=== PATIENT | male | born 1985 | race Caucasian/White ===

== ENCOUNTER 2019-06-23 06:49 | Inpatient (IN) | payer MEDICAID, OTHER ==
[~2019-06-23] VITALS: Ht 170.2 cm; Wt 59.0 kg
[2019-06-23 06:53] VITALS: BP 141/91
--- NOTE | 2019-06-23 07:10 | NUR ---
BIBA WITH C/O SUDDEN ONSET GENERALIZED ABD PAIN 10/10 STARTING THIS MORNING. DENIES N/V/D/FEVER. PT REPORTS CONSTIPATION X2 DAYS. BOWEL SOUNDS PRESENT X4, ABD SOFT/FLAT NON TENDER TO PALPATION. DENIES DIET CHANGES OR RECENT ILLNESS. BED IN LOW POSITION, PT MOM AT BEDSIDE. SIDE RAIL UP X1.
--- NOTE | 2019-06-23 07:25 | NUR ---
DR. WALSH AT BEDSIDE EVALUATING PT
[2019-06-23] MEDS ORDERED: ACETAMINOPHEN 325 MG TAB PO ONE (07:30)
[2019-06-23] MEDS ORDERED: FAMOTIDINE 20 MG TAB PO ONE (07:30)
[2019-06-23 07:52] LABS: BASOPHILS # (AUTO) 0.1 K/uL (0.00-0.22); BASOPHILS % (AUTO) 1.4 % (0.0-2.0); EOSINOPHILS # (AUTO) 0.1 K/uL (0-0.4); EOSINOPHILS % (AUTO) 1.4 % (0.0-4.0); HEMATOCRIT 41.5 % (36-52); HEMOGLOBIN 13.8 g/dL (12.0-18.0); LYMPHOCYTES # (AUTO) 2.2 K/uL (2.0-11.5); LYMPHOCYTES % (AUTO) 29.9 % (20.5-51.1); MEAN CORPUSCULAR HEMOGLOBIN 32 pg (27-31); MEAN CORPUSCULAR HGB CONC 33 g/dL (33-37); MEAN CORPUSCULAR VOLUME 97.2 fL (80-94); MONOCYTES # (AUTO) 0.3 K/uL (0.8-1.0); MONOCYTES % (AUTO) 4.2 % (1.7-9.3); NEUTROPHILS # (AUTO) 4.7 K/uL (1.8-7.7); NEUTROPHILS % (AUTO) 63.1 % (42.2-75.2); PLATELET COUNT (AUTO) 204 K/uL (140-450); RED BLOOD CELL COUNT(AUTO) 4.27 MIL/uL (4.20-6.10); RED CELL DISTRIBUTION WIDTH 15.5 % (11.6-13.7); WHITE BLOOD COUNT (AUTO) 7.4 K/uL (4.8-10.8)
[2019-06-23 08:01] LABS: ALBUMIN 4.6 g/dL (3.4-5.0); ANION GAP 10.7 (8-16); CARBON DIOXIDE 31.5 mmol/L (21-32); CREATININE 1.3 mg/dL (0.6-1.3); POTASSIUM 4.2 mmol/L (3.5-5.1)
--- NOTE | 2019-06-23 08:14 | NUR ---
PT RESTING IN BED, NO NEW NEEDS AT THIS TIME. REPORTS PAIN 4/10 AT THIS TIME.
[2019-06-23] MEDS ORDERED: KETOROLAC 60 MG/2 ML VIAL IM ONE (08:20)
--- NOTE | 2019-06-23 09:00 | NUR ---
PT STATES HE FEELS BATTER AFTER TORADOL, 0/10 AT THIS TIME
[2019-06-23] MEDS ORDERED: BICT1TAB PO (10:09)
[2019-06-23] MEDS: NACL 0.9% 1,000 ML IV SCH ×2 (11:13→21:13)
[2019-06-23] MEDS ORDERED: MORPHINE SULFATE 2 MG/ML SYR IVP PRN (11:15)
[2019-06-23] MEDS ORDERED: ONDANSETRON 4 MG/2 ML VIAL IVP PRN (11:15)
[2019-06-23 11:50] VITALS: BP 107/59
--- NOTE | 2019-06-23 11:50 | NUR ---
PT CAME TO UNIT ON A WHEELCHAIR. PT IS ALERT AWAKE AND RESPONSIVE. NO DISTRESS NOTED. CALL LIGHT IN REACH.
--- NOTE | 2019-06-23 11:55 | NUR ---
ADMISSION ASSESSMENT DONE ON PATIENT. NO COMPLAINS OF PAIN. SKIN INTACT. PT ALERT AWAKE AND RESPONSIVE. PT AMBULATES TO BATHROOM. ID BAND ON HAND. IV LINE INTACT. SAFETY MEASURES IN PLACE. WILL CONTINUE TO MONITOR. CALL LIGHT IN REACH.
--- NOTE | 2019-06-23 12:02 | NUR ---
Patient will be admitted to care of DR. EDWARDS. Admited to MED SURGE. Will go to room 120B. Belongings list completed. Report to GERMAINE PRADO.
[2019-06-23] MEDS ORDERED: PIPERACILLIN/TAZOBACTAM 3.375 GM in DEXTROSE 5% 50 ML IV SCH (13:00)
--- NOTE | 2019-06-23 13:00 | NUR ---
PT IS IN BED AT THIS TIME. PT IS SLEEPING WITH NO DISTRESS OR COMPLAINS OF PAIN REPORTED. WILL CONTINUE TO MONITOR. CALL LIGHT IN REACH.
[2019-06-23] MEDS: metroNIDAZOLE 500 MG/NS PREMIX 100 ML IV SCH ×2 (13:37→21:35)
[2019-06-23] MEDS ORDERED: LEVOFLOXACIN 500 MG/D5W PREMIX 100 ML IV SCH (14:00)
[2019-06-23 16:00] VITALS: BP 117/60
--- NOTE | 2019-06-23 16:26 | NUR ---
PT IS IN BED AT THIS TIME. PT IS SLEEPING WITH NO DISTRESS OR COMPLAINS OF PAIN REPORTED. PT RESPONSIVE WHEN CALLED. WILL CONTINUE TO MONITOR. CALL LIGHT IN REACH.
--- NOTE | 2019-06-23 17:30 | NUR ---
PT IS OFF UNIT FOR A HIDA SCAN PROCEDURE.
--- NOTE | 2019-06-23 18:27 | NUR ---
2MG MORPHINE GIVEN IV. PT IS HAVING A HIDASCAN PROCEDURE.
--- NOTE | 2019-06-23 19:07 | NUR ---
SHIFT REPORT GIVEN TO MESMERIST NURSE. PT IS STILL IN PROCEDURE. FAMILY BY BEDSIDE.
--- NOTE | 2019-06-23 19:30 | NUR ---
RECD. RESTING IN BED, FROM HIDA SCAN. AWAKE, A/OX4. RESPIRATION EVEN AND UNLABORED. IV SALINE LOKC AT THE LEFT FOREARM G20, PATENT AND INTACT. CONVERSING WITH FAMILY AT THE BEDSIDE. PLAN OF CARE FOR THE SHIFT DISCUSSED. VERBALIZED UNDERSTANDING. DENIES PAIN 0/10.
--- NOTE | 2019-06-23 19:30 | NUR ---
Patient's Plan of Care was discussed and reviewed with SPOT SPRAYER: NEEMA KELLY
[2019-06-23 20:00] VITALS: BP 105/64
--- NOTE | 2019-06-23 22:00 | NUR ---
STILL AWAKE IN BED, SANDWICH AND JUICE GIVEN REQUESTED.
--- NOTE | 2019-06-24 | NUR ---
AMBULATED TO BR TO VOID, BACK TO BED. ADVISED TO GO TO SLEEP.
--- NOTE | 2019-06-24 02:00 | NUR ---
SLEEPING COMFORTABLY IN BED.
--- NOTE | 2019-06-24 04:00 | NUR ---
STILL SLEEPING COMFORTABLY. NO DISTRESS NOTED.
[2019-06-24] MEDS: metroNIDAZOLE 500 MG/NS PREMIX 100 ML IV SCH (05:31)
[2019-06-24 05:53] LABS: BASOPHILS % (AUTO) 0.5 % (0.0-2.0); EOSINOPHILS # (AUTO) 0.1 K/uL (0-0.4); HEMATOCRIT 37.9 % (36-52); HEMOGLOBIN 12.6 g/dL (12.0-18.0); LYMPHOCYTES # (AUTO) 1.9 K/uL (2.0-11.5); LYMPHOCYTES % (AUTO) 37.4 % (20.5-51.1); MEAN CORPUSCULAR HEMOGLOBIN 33 pg (27-31); MEAN CORPUSCULAR HGB CONC 33 g/dL (33-37); MEAN CORPUSCULAR VOLUME 97.8 fL (80-94); MONOCYTES # (AUTO) 0.3 K/uL (0.8-1.0); MONOCYTES % (AUTO) 5.9 % (1.7-9.3); NEUTROPHILS # (AUTO) 2.7 K/uL (1.8-7.7); NEUTROPHILS % (AUTO) 54.2 % (42.2-75.2); PLATELET COUNT (AUTO) 190 K/uL (140-450); RED BLOOD CELL COUNT(AUTO) 3.88 MIL/uL (4.20-6.10); RED CELL DISTRIBUTION WIDTH 15.3 % (11.6-13.7); WHITE BLOOD COUNT (AUTO) 5.1 K/uL (4.8-10.8)
[2019-06-24 06:36] LABS: ALBUMIN 3.8 g/dL (3.4-5.0); ANION GAP 10.8 (8-16); CARBON DIOXIDE 28.7 mmol/L (21-32); CREATININE 1.2 mg/dL (0.6-1.3); POTASSIUM 4.5 mmol/L (3.5-5.1); TOTAL BILIRUBIN 1.7 mg/dL (0.0-1.0)
--- NOTE | 2019-06-24 07:10 | NUR ---
CONDITION REMAIN STABLE. NO COMPLAINT OF PAIN DURING SHIFT. ENDORSED TO AM SHIFT NURSE FOR CONTINUITY OF CARE.
[2019-06-24] MEDS: NACL 0.9% 1,000 ML IV SCH (07:13)
--- NOTE | 2019-06-24 07:15 | NUR ---
RECEIVED REPORT FROM NIGHT NURSE. PT IN STABLE CONDITION, LAYING IN BED AWAKE, NO DISTRESS NOTED, DENIES PAIN, RESPIRATIONS EVEN AND UNLABORED ON ROOM AIR. SKIN INTACT, AMBULATORY. IV SITE IN PLACE, PATENT AND ASYMPTOMATIC INFUSING PER ORDER IN L FA 20G. SAFETY MEASURES IN PLACE, CALL LIGHT WITHIN REACH, BED IN LOW POSITION. WILL CONTINUE TO MONITOR.
[2019-06-24 08:00] VITALS: BP 119/66
--- NOTE | 2019-06-24 08:13 | NUR ---
MEDICATIONS ADMINISTERED PER ORDER. PT TOLERATED WELL, NO DISTRESS NOTED. NO COMPLAINTS OF PAIN. LEFT PT WITH BREAKFAST. WILL CONTINUE TO MONITOR.
--- NOTE | 2019-06-24 08:24 | NUR ---
PATIENT HAS BEEN SCREENED AND CATEGORIZED LOW NUTRITION RISK. PATIENT WILL BE SEEN WITHIN 7 DAYS OF ADMISSION. 06/29/[address]
[2019-06-24] MEDS ORDERED: ENOXAPARIN 40 MG/0.4 ML SYR SUBQ SCH (09:00)
--- NOTE | 2019-06-24 10:48 | NUR ---
PT IN BED, AWAKE WATCHING TV. NO DISTRESS NOTED, DENIES PAIN, RESPIRATIONS EVEN AND UNLABORED ON ROOM AIR. SAFETY MEASURES IN PLACE, CALL LIGHT IN PLACE. WILL CONTINUE TO MONITOR.
--- NOTE | 2019-06-24 12:45 | NUR ---
PT IN BED, AWAKE, WATCHING TV. NO DISTRESS NOTED, DENIES PAIN, RESPIRATIONS EVEN AND UNLABORED ON ROOM AIR. CALL LIGHT WITHIN REACH, WILL CONTINUE TO MONITOR.
[2019-06-24 14:35] VITALS: BP 119/66
--- NOTE | 2019-06-24 15:00 | NUR ---
PT TO BE DISCHARGED HOME AT THIS TIME. DISCHARGE AND FOLLOWUP TEACHING GIVEN TO PT, PT VERBALIZED UNDERSTANDING. NO DISCHARGE PRESCRIPTIONS ORDERED. IV SITE REMOVED WITH MINIMAL BLOOD LOSS AND LUMEN INTACT. ID BANDS REMOVED. BELONGINGS VERIFIED AND RETURNED TO PT. FLU VACCINE REFUSED AND PNA VACCINE N/A. PT ESCORTED OFF THE UNIT ON FOOT ACCOMPANIED BY HIS MOTHER AND LEFT THE HOSPITAL IN PRIVATE VEHICLE.
== END 2019-06-24 15:11 | disposition home or self-care (01) ==
LOC: MED 06:49 → MTU 11:13
PROVIDERS: ADMIT Hospitalist; ATTEND Hospitalist
DX: K80.20 Calculus of gallbladder without cholecystitis without obstruction (principal); Z88.0 Allergy status to penicillin
CPT/HCPCS: 36415; 74150; 76705; 78445; 80053; 83690; 85025; 87081; 96372; 99285; J1650; J1885; J1956; J2270; J3490; J7030; Q0092

== ENCOUNTER 2019-07-05 00:07 | Emergency (ER) | payer OTHER ==
[~2019-07-05] VITALS: Ht 170.2 cm; Wt 59.0 kg
[~2019-07-05 00:07] MED LIST: BICT1TAB PO
[2019-07-05 00:11] VITALS: BP 130/83
--- NOTE | 2019-07-05 00:16 | NUR ---
PT TAKEN TO ER BED 3 VIA W/C
--- NOTE | 2019-07-05 00:26 | NUR ---
34 YO MALE CO STOMACH PAIN SINCE TODAY. PAIN IS IN THE MIDDLE OF THE ABD AND DOES NOT RADIATE ANYWHERE ELSE. PAIN IS 8/10 AT THIS TIME. PT DENIES ANY N/V/D. BS ACTIVE IN ALL FOUR QUADS. PT HAS HX OF HIV AND IS TAKING MEDS.
[2019-07-05 00:37] VITALS: BP 130/83
--- NOTE | 2019-07-05 00:38 | NUR ---
Patient discharged with v/s stable. Written and verbal after care instructions given and explained. Patient alert, oriented and verbalized understanding of instructions. Ambulatory with steady gait. All questions addressed prior to discharge. ID band removed. Patient advised to follow up with PMD. Rx of TYLENOL, PRILOSEC given. Patient educated on indication of medication including possible reaction and side effects. Opportunity to ask questions provided and answered.
== END 2019-07-05 00:38 | disposition home or self-care (01) ==
LOC: MED 00:07
DX: K80.50 Calculus of bile duct without cholangitis or cholecystitis without obstruction (principal); K29.70 Gastritis, unspecified, without bleeding; Z88.0 Allergy status to penicillin; Z79.899 Other long term (current) drug therapy
CPT/HCPCS: 99283

== ENCOUNTER 2019-12-08 06:00 | Inpatient (IN) | payer OTHER ==
[~2019-12-08] VITALS: Ht 170.2 cm; Wt 58.1 kg
[2019-12-08 06:17] VITALS: BP 118/62
--- NOTE | 2019-12-08 06:21 | NUR ---
34 Y/O MALE PRESENTS TO ER WITH C/O INTERMITTENT EPIGASTRIC ABDOMINAL PAIN X 2 DAYS. 6/10 PAIN. A&O X4. PT STATES HE HAS TAKEN MILK OF MAGNESIA FOR THE PAST TWO DAYS AND HAS HAD DIARRHEA SINCE. ALSO C/O OF NAUSEA. DENIES VOMITING, INJURY/TRAUMA TO ABDOMEN, OR TTP, CHILLS, SOB, COUGH, FEVER. PT TOOK TYLENOL 325MG X2 @ 0400 BEFORE COMING TO ER. PT'S EYES, AND SKIN ARE SEVERELY JAUNDICED. VSS, R/R EQUAL, AND UNLABORED. SIDE RAIL X2, BED IN LOW POSITION, WILL CONTINUE TO MONITOR. ALLERGY: PENICILLIN PMH: HIV+
--- NOTE | 2019-12-08 06:23 | NUR ---
PT TO BED 12. PT CARE TO NAPOLEON HERRON
[2019-12-08 06:59] LABS: BASOPHILS # (AUTO) 0.1 K/uL (0.00-0.22); BASOPHILS % (AUTO) 0.7 % (0.0-2.0); EOSINOPHILS # (AUTO) 0.1 K/uL (0-0.4); EOSINOPHILS % (AUTO) 0.8 % (0.0-4.0); HEMOGLOBIN 13.4 g/dL (12.0-18.0); LYMPHOCYTES # (AUTO) 0.8 K/uL (2.0-11.5); LYMPHOCYTES % (AUTO) 12.1 % (20.5-51.1); MEAN CORPUSCULAR HEMOGLOBIN 34 pg (27-31); MEAN CORPUSCULAR HGB CONC 33 g/dL (33-37); MEAN CORPUSCULAR VOLUME 102.3 fL (80-94); MONOCYTES # (AUTO) 0.2 K/uL (0.8-1.0); MONOCYTES % (AUTO) 3.6 % (1.7-9.3); NEUTROPHILS # (AUTO) 5.6 K/uL (1.8-7.7); NEUTROPHILS % (AUTO) 82.8 % (42.2-75.2); PLATELET COUNT (AUTO) 192 K/uL (140-450); RED BLOOD CELL COUNT(AUTO) 3.91 MIL/uL (4.20-6.10); RED CELL DISTRIBUTION WIDTH 14.1 % (11.6-13.7); WHITE BLOOD COUNT (AUTO) 6.8 K/uL (4.8-10.8)
[2019-12-08] MEDS ORDERED: NACL 0.9% 1,000 ML IV SCH (07:17)
[2019-12-08 07:21] LABS: ALBUMIN 4.4 g/dL (3.4-5.0); ANION GAP 12.4 (8-16); CREATININE 1.1 mg/dL (0.6-1.3); POTASSIUM 3.4 mmol/L (3.5-5.1); TOTAL BILIRUBIN 23.4 mg/dL (0.0-1.0)
--- NOTE | 2019-12-08 07:25 | NUR ---
XRAY AT BEDSIDE
--- NOTE | 2019-12-08 07:33 | NUR ---
IV INSERTED AND BOLUS STARTED
[2019-12-08] MEDS ORDERED: HYDROcodone/APAP 5/325 MG 1 TAB TAB PO PRN (09:25)
[2019-12-08] MEDS ORDERED: ONDANSETRON 4 MG/2 ML VIAL IVP PRN (09:25)
[2019-12-08] MEDS ORDERED: ACETAMINOPHEN 325 MG TAB PO PRN (09:25)
[2019-12-08] MEDS ORDERED: MORPHINE SULFATE 2 MG/ML SYR IVP PRN (09:25)
--- NOTE | 2019-12-08 09:27 | NUR ---
vs stable. pt denies pain.
--- NOTE | 2019-12-08 10:35 | NUR ---
Patient will be admitted to [facility]. Admited to [facility]. Will go to room 126 A. Belongings list completed. Report to LIGIA HERRON.
--- NOTE | 2019-12-08 10:35 | NUR ---
RECEIVED REPORT FROM ER NURSE MANOHAR VIA WHEELCHAIR, PT IS AAOX4 ON ROOM AIR, IV SITES INTACT AND PATENT AT LEFT AC, SKIN INTACT, AMBULATORY, NOT IN DISTRESS, DENIES PAIN. ORIENTED TO ROOM, SAFETY MEASURES IN PLACE. CALL LIGHT WITHIN REACH. WILL CONTINUE TO MONITOR.
[2019-12-08] MEDS: NACL 0.9% 1,000 ML IV SCH ×2 (10:58→19:21)
--- NOTE | 2019-12-08 11:00 | NUR ---
PATIENT WAS SWAB WITH MRSA NARES AND SEND TO LABORATORY FOR TESTING. SAFETY MEASURES IN PLACE CALL LIGHT WITHIN REACH. WILL CONTINUE TO MONITOR.
[2019-12-08 11:46] VITALS: BP 98/54
--- NOTE | 2019-12-08 13:26 | NUR ---
PATIENT IS FOR CT OF THE ABDOMEN WITH CONTRAST ORDERED BY DR GRUBBS FOR ABDOMINAL PAIN. CONSENT GIVEN BY THE PATIENT.
[2019-12-08 14:08] LABS: PROTHROMBIN TIME 9.9 secs (10.8-13.4)
[2019-12-08 14:11] LABS: BARBITURATE, URINE NEGATIVE ng/ml (NEG <=200)
[2019-12-08 14:12] LABS: BENZODIAZEPINE, URINE NEGATIVE ng/mL (NEG <=200); CANNABINOID, URINE NEGATIVE ng/mL (NEG <=50); COCAINE, URINE NEGATIVE ng/mL (NEG <=300); OPIATE, URINE NEGATIVE ng/mL (NEG <=2000); PHENCYCLIDINE SCREEN,URINE NEGATIVE ng/mL (NEG <=25)
--- NOTE | 2019-12-08 14:24 | NUR ---
DISCHARGE PLANNING: THIS IS A 34 Y/O MALE PATIENT FROM HOME, WHO CAME IN DUE TO INTERMITTENT ABDOMINAL PAIN. PAST MEDICAL HISTORY INCLUDE HIV. INITIAL DIAGNOSIS OF ABDOMINAL PAIN, CHOLELITHIASIS. CURRENT LABS INCLUDE WBC 6.8, H/H 13.4/40.0, NA/K 142/3.4, BUN/CREA 10/1.1, AST/ALT 309/501, ALKALINE PHOS 224. ABD U/S SHOWED CHOLELITHIASIS AND GALLBLADDER SLUDGE WITHOUT EVIDENCE OF CHOLECYSTITIS. ON LEVAQUIN. GI CONSULT IN PLACE. DC PLAN BACK TO HOME ONCE STABLE. Addendum: 12/09/19 at 1552 by Nyasia Meyer CM S/P ERC WITH REMOVAL OF BILIARY STONE AND SLUDGE MATERIAL WITH DR HUMERA DELUCA. ON FULL LIQUID DIET. ON LEVAQUIN. Addendum: 12/10/19 at 1247 by Cheyenne Mendez CM DC PATTERNATOR: SCHEDULED PATIENT A FOLLOW UP APPT WITH PCP. AT 10:00 AM. [phone]. [address] [facility] [id number] Addendum: 12/10/19 at 1249 by Cheyenne Mendez CM WILL PROVIDE PATIENT WITH APPT REMINDER, NOTIFIED GERMAINE LEVY Addendum: 12/10/19 at 1624 by Anuja Qureshi CM DC PLANNING: DR JACKELYN MILLER TODAY. CONTINUE CURRENT THERAPY. DC PLAN TO GO HOME WHEN STABLE CM TO FOLLOW.
[2019-12-08] MEDS: LEVOFLOXACIN 500 MG/D5W PREMIX 100 ML IV SCH (14:33)
[2019-12-08 16:00] VITALS: BP 105/61
--- NOTE | 2019-12-08 17:06 | NUR ---
MADE ROUNDS AT THIS TIME PATIENT IS STABLE NO DISTRESS NOTED DENIES PAIN. WILL CONTINUE TO MONITOR.
--- NOTE | 2019-12-08 19:18 | NUR ---
ENDORSED TO NIGHT NURSE FOR CONTINUITY OF CARE. PT IS STABLE.
--- NOTE | 2019-12-08 19:19 | NUR ---
RECD. RESTING IN BED, AWAKE, A/OX4. WATCHING TV. RESPIRATION EVEN AND UNLABORED. IV OF NS AT 100 ML/HR INFUSING, LEFT AC G20. ON CLEAR LIQUID DIET. AMBULATING TO THE BR. PLAN OF CARE FOR THE SHIFT DISCUSSED. VERBALIZED UNDERSTANDING. DENIES PAIN 0/10.
--- NOTE | 2019-12-08 20:40 | NUR ---
FOLLOW UP FOR THE SECOND TIME RADIOLOGY STAFF, TO TAKE PATIENT FOR CT OF ABDOMEN WITH AND WITHOUT IV CONTRAST. WILL COME AND TAKE PATIENT IN AN HOUR.
--- NOTE | 2019-12-08 21:25 | NUR ---
TAKEN TO RADIOLOGY VIA W/C BY JULIANNA, FOR CT OF ABDOMEN/PELVIS.
--- NOTE | 2019-12-08 23:00 | NUR ---
SLEEPING COMFORTABLY IN BED.
[2019-12-09] VITALS: BP 101/59
[2019-12-09] MEDS: NACL 0.9% 1,000 ML IV SCH ×4 (01:31→15:23)
--- NOTE | 2019-12-09 02:00 | NUR ---
RESULT OF CT OF ABD/PELVIS WITH IV CONTRAST - SUSPICIOUS FOR CHOLECYSTITIS.
--- NOTE | 2019-12-09 04:00 | NUR ---
SLEEPING COMFORTABLY IN BED.
[2019-12-09 05:36] LABS: BASOPHILS % (AUTO) 0.4 % (0.0-2.0); EOSINOPHILS # (AUTO) 0.1 K/uL (0-0.4); EOSINOPHILS % (AUTO) 1.9 % (0.0-4.0); HEMATOCRIT 34.8 % (36-52); HEMOGLOBIN 11.6 g/dL (12.0-18.0); LYMPHOCYTES # (AUTO) 1.9 K/uL (2.0-11.5); LYMPHOCYTES % (AUTO) 40.9 % (20.5-51.1); MEAN CORPUSCULAR HEMOGLOBIN 35 pg (27-31); MEAN CORPUSCULAR HGB CONC 34 g/dL (33-37); MEAN CORPUSCULAR VOLUME 103.4 fL (80-94); MONOCYTES # (AUTO) 0.2 K/uL (0.8-1.0); NEUTROPHILS # (AUTO) 2.5 K/uL (1.8-7.7); NEUTROPHILS % (AUTO) 52.8 % (42.2-75.2); PLATELET COUNT (AUTO) 161 K/uL (140-450); RED BLOOD CELL COUNT(AUTO) 3.37 MIL/uL (4.20-6.10); RED CELL DISTRIBUTION WIDTH 14.3 % (11.6-13.7); WHITE BLOOD COUNT (AUTO) 4.6 K/uL (4.8-10.8)
[2019-12-09 06:23] LABS: ALBUMIN 3.6 g/dL (3.4-5.0); ANION GAP 13.3 (8-16); CARBON DIOXIDE 26.4 mmol/L (21-32); CREATININE 1.1 mg/dL (0.6-1.3); POTASSIUM 3.7 mmol/L (3.5-5.1)
--- NOTE | 2019-12-09 07:00 | NUR ---
CONDITION REMAIN STABLE. STATED HE HAD SOME MODERATE AMOUNT OF DIARRHEA X4. WILL ENDORSE TO AM SHIFT NURSE FOR CONTINUITY OF CARE.
--- NOTE | 2019-12-09 07:20 | NUR ---
RECEIVED PATIENT FROM NIGHT NURSE. PATIENT IS AWAKE, ALERT, ORIENTED X4. SITTING UP IN BED WATCHING TV. DENIES OF PAIN. RESP EVEN AND UNLABORED ON ROOM AIR. PATIENT IS ABLE TO MAKE NEEDS KNOWN. AMBULATING TO BATHROOM WITH STEADY GAIT. SAFETY MEASURES IN PLACE. WILL CONTINUE TO MONITOR.
[2019-12-09 07:58] LABS: HEPATITIS A ANTIBODY IGM Negative (Negative); HEPATITIS B CORE AB TOTAL Negative (Negative); HEPATITIS B SURFACE ANTIBODY Reactive (.); HEPATITIS B SURFACE ANTIGEN Negative (Negative)
--- NOTE | 2019-12-09 09:05 | NUR ---
PATIENT HAS BEEN SCREENED AND CATEGORIZED LOW NUTRITION RISK. PATIENT WILL BE SEEN WITHIN 7 DAYS OF ADMISSION. 12/14/[address]
--- NOTE | 2019-12-09 09:22 | NUR ---
PICK AND SHOVEL MAN NOTE: Patient's Orientation Person Situation Place Time Information Provided By PATIENT Comments SW CONTACTED PATIENT'S ROOM PHONE TO COMPLETE ASSESSMENT. PATIENT ALSO CONTACTED EMERGENCY CONTACT YANIRA, WHO DISCONNECTED THE PHONE REPEATEDLY. Wax Machine Operator, Realtionship and Phone Number YANIRA MAY [phone] Healthcare Power of Dispatcher Radioactive Waste Disposal No Does Patient Have a POLST No Identifying Problems No Social Work Triggers Is A Social Work Consult Needed No Mandate Report Filed No Explanation Of Identifying Problems PATIENT IS A 34-YEAR-OLD MALE ADMITTED FOR ABDOMINAL PAIN. PATIENT HAS PMHX OF CHOLEITHIASIS AND HIV. Admitted From Home Pre-Admission Level Of Functioning Status Independent/Ambulatory Prior Resources/Services Used In Last 12 Months No Prior Resources Used Prior DME No Prior DME Used Living Situation Lives With Family House Patient Had Caregiver No Home Support No Caregiver Issues Financial Issues No Known Financial Issue Referral To The Financial Counselor Needed No Factors/Needs No D/C Needs Identified Pt/Rep Participated In Discharge Plan Yes Patient/Family Agress With Discharge Plan Yes Discharge Plan Comments TENTATIVE DISCHARGE PLAN IS FOR PATIENT TO RETURN HOME. DC Plan Status Initiated
--- NOTE | 2019-12-09 10:16 | NUR ---
PATIENT IS SITTING UP IN BED WATCHING TV. DENIES OF PAIN AT THIS TIME. WAITING PROCEDURE WITH DR GRUBBS SCHEDULED AT 1130. RESP EVEN AND UNLABORED ON ROOM AIR. SAFETY MEASURES IN PLACE. CALL LIGHT WITHIN REACH. WILL CONTINUE TO MONITOR.
--- NOTE | 2019-12-09 13:25 | NUR ---
PATIENT LEFT TO OR FOR ERCP. PATIENT LEFT IN STABLE CONDITION.
[2019-12-09] MEDS: LEVOFLOXACIN 500 MG/D5W PREMIX 100 ML IV SCH (15:22)
--- NOTE | 2019-12-09 15:32 | NUR ---
PATIENT CAME BACK FROM ERCP IN STABLE CONDITION. LEVAQUIN AND NS ADMINISTERED. PATIENT DENIES PAIN AT THIS TIME. RESP EVEN AND UNLABORED ON ROOM AIR. VITALS STABLE. CALL LIGHT WITHIN REACH. WILL CONTINUE TO MONITOR. Addendum: 12/09/19 at 1539 by Isabel Warner RN MILD JAUNDICE NOTED TO FACIAL AREA.
[2019-12-09 16:00] VITALS: BP 111/70
--- NOTE | 2019-12-09 17:46 | NUR ---
DR HAYDEN AT BEDSIDE DISCUSSING PLAN OF CARE WITH PATIENT. POSSIBLE SURGERY FOR LAP PAUL TOMORROW, PROCEDURE EXPLAINED TO PATIENT WITH RISKS/BENEFITS. PATIENT VERBALIZED UNDERSTANDING.
--- NOTE | 2019-12-09 18:52 | NUR ---
CONSENT FOR LAPAROSCOPIC POSSIBLE OPEN CHOLECYSTECTOMY, POSSIBLE CHOLANGIOGRAM OBTAINED FROM PATIENT.
--- NOTE | 2019-12-09 19:29 | NUR ---
ENDORSED PATIENT TO NIGHT NURSE. PATIENT IN STABLE CONDITION.
--- NOTE | 2019-12-09 19:30 | NUR ---
RECEIVED BEDSIDE REPORT FROM DAY SHIFT NURSE FOR CONTINUITY OF CARE. PT IS AWAKE AND ALERT. A&O X4. BREATHING IS UNLABORED ON RA. LUNG SOUNDS ARE CLEAR IN ALL LOBES. BOWEL SOUNDS ARE PRESENT IN ALL QUADRANTS. PT STATED EATING LIQUID DINNER MADE HIM FEEL SICK. PT WILL BE NPO AFTER MIDNIGHT FOR POSSIBLE SURGERY TOMORROW. PT DENIES ANY PAIN. NO DISTRESS NOTED. IV IS PATENT AND INTACT RUNNING NS AT 100 ML PER HOUR PER ORDER. IV IS IN THE RIGHT AC 20 GAUGE. SKIN IS WARM, DRY, AND INTACT. JAUNDICE NOTED ON FACE AND ARMS. PT IS ABLE TO AMBULATE FOR BATHROOM PRIVILEGES. PLAN OF CARE WAS DISCUSSED. BED IS IN THE LOWEST POSITION AND CALL LIGHT IS WITHIN REACH.
--- NOTE | 2019-12-09 21:10 | NUR ---
PT IS AWAKE. DENIES PAIN AT THIS TIME. NO DISTRESS NOTED. WATCHING TV IN SEMI FOWLERS POSITION. BLANKET WAS PROVIDED FOR COMFORT.
--- NOTE | 2019-12-09 23:00 | NUR ---
PT IS ASLEEP. CHEST RISE AND FALL IS SYMMETRICAL. BREATHING IS UNLABORED. BED IS IN LOWEST POSITION AND CALL LIGHT IS WITHIN REACH. PT HAS BATHROOM PRIVILEGES. WILL CONTINUE TO MONITOR.
[2019-12-10] VITALS: BP 93/58
--- NOTE | 2019-12-10 | NUR ---
ORDERS IN PLACE FOR NPO AFTER MIDNIGHT. FOOD ITEMS AND DRINKS WERE REMOVED FROM BEDSIDE. PT VERBALIZED UNDERSTANDING FOR NPO ORDER.
--- NOTE | 2019-12-10 01:28 | NUR ---
ROUNDED ON PT. A&O X 4, ON RA. PT IS STABLE AND AWAKE WATCHING TV IN HIGH FOWLERS POSITION. REQUESTED TO PLUG IN SPECIAL EDUCATION COORDINATOR AND HAVE CELL PHONE AT BEDSIDE. IV FLUIDS ARE RUNNING ORDERED. ALL NEEDS ARE MET.
[2019-12-10] MEDS: NACL 0.9% 1,000 ML IV SCH ×4 (02:07→21:09)
--- NOTE | 2019-12-10 03:40 | NUR ---
PT IS ASLEEP. BREATHING IS UNLABORED. PT IS STABLE AT THIS TIME. IV IS PATENT AND INFUSING PER ORDER. CALL LIGHT IS WITHIN REACH.
[2019-12-10 05:31] LABS: BASOPHILS # (AUTO) 0.1 K/uL (0.00-0.22); BASOPHILS % (AUTO) 1.1 % (0.0-2.0); EOSINOPHILS # (AUTO) 0.1 K/uL (0-0.4); EOSINOPHILS % (AUTO) 1.8 % (0.0-4.0); HEMATOCRIT 33.9 % (36-52); HEMOGLOBIN 11.3 g/dL (12.0-18.0); LYMPHOCYTES # (AUTO) 1.4 K/uL (2.0-11.5); LYMPHOCYTES % (AUTO) 29.8 % (20.5-51.1); MEAN CORPUSCULAR HEMOGLOBIN 35 pg (27-31); MEAN CORPUSCULAR HGB CONC 33 g/dL (33-37); MEAN CORPUSCULAR VOLUME 103.6 fL (80-94); MONOCYTES # (AUTO) 0.3 K/uL (0.8-1.0); MONOCYTES % (AUTO) 5.6 % (1.7-9.3); NEUTROPHILS # (AUTO) 2.8 K/uL (1.8-7.7); NEUTROPHILS % (AUTO) 61.7 % (42.2-75.2); PLATELET COUNT (AUTO) 155 K/uL (140-450); RED BLOOD CELL COUNT(AUTO) 3.27 MIL/uL (4.20-6.10); RED CELL DISTRIBUTION WIDTH 14.1 % (11.6-13.7); WHITE BLOOD COUNT (AUTO) 4.6 K/uL (4.8-10.8)
--- NOTE | 2019-12-10 06:00 | NUR ---
ALERT AND AWAKE, A&O X4. WATCHING TV. PT IS STABLE AND NEEDS ARE MET. PT HAS BEEN NPO AFTER MIDNIGHT.
[2019-12-10 07:16] LABS: ALBUMIN 3.4 g/dL (3.4-5.0); ANION GAP 14.6 (8-16); CARBON DIOXIDE 24.5 mmol/L (21-32); CREATININE 0.9 mg/dL (0.6-1.3); POTASSIUM 4.1 mmol/L (3.5-5.1)
--- NOTE | 2019-12-10 07:17 | NUR ---
ENDORSED PT TO DAY SHIFT NURSE FOR CONTINUITY OF CARE. PT IS STABLE AT THIS TIME. PLAN OF CARE WAS DISCUSSED.
--- NOTE | 2019-12-10 07:23 | NUR ---
RECEIVED BEDSIDE REPORT FROM NIGHTSHIFT NURSE. PT RESTING IN BED. ABLE TO MAKE NEEDS KNOWN. RESPIRATIONS EVEN AND UNLABORED WITH NO SOB OR RESPIRATORY DISTRESS. SKIN WARM AND DRY TO TOUCH. IV SITE IN LAC 20G IS CLEAN, DRY, AND INTACT. SAFETY MEASURES IN PLACE. WILL CONTINUE TO MONITOR
[2019-12-10 08:00] VITALS: BP 105/63
--- NOTE | 2019-12-10 09:15 | NUR ---
PT IS AWARE THAT SURGERY IS GOING TO HAPPEN AT 1255. NO COMPLAINTS OR CONCERNS AT THIS TIME. RESPIRATIONS EVEN AND UNLABORED WITH NO SOB OR RESPIRATORY DISTRESS. WILL CONTINUE TO MONITOR
--- NOTE | 2019-12-10 10:06 | NUR ---
PRE-OP CHECKLIST IS COMPLETE AND FINALIZED. CONSENT IS ALREADY SIGNED AND IN PATIENT'S CHART. SAFETY MEASURES IN PLACE. WILL CONTINUE TO MONITOR
--- NOTE | 2019-12-10 12:30 | NUR ---
OR TOOK PATIENT FOR SURGERY. REPORT GIVEN AT BEDSIDE. WILL CONTINUE TO MONITOR
[2019-12-10] MEDS ORDERED: METOCLOPRAMIDE 10 MG/2 ML INJ VIAL ONE (12:44)
[2019-12-10] MEDS ORDERED: LIDOCAINE 2% 100 MG/5 ML SYR IVP ONE (12:44)
[2019-12-10] MEDS ORDERED: KETOROLAC 30 MG/ML VIAL ONE (12:44)
[2019-12-10] MEDS ORDERED: ROCURONIUM 50 MG/5 ML VIAL IV ONE (12:44)
[2019-12-10] MEDS ORDERED: SEVOFLURANE 250 ML BTL INH ONE (12:44)
[2019-12-10] MEDS ORDERED: GLYCOPYRROLATE 0.2 MG/ML VIAL ONE (12:44)
[2019-12-10] MEDS ORDERED: PROPOFOL 200 MG/20 ML VIAL IV ONE (12:44)
[2019-12-10] MEDS ORDERED: SUCCINYLCHOLINE CHLORIDE 200 MG/10 ML VIAL IVP ONE (12:44)
[2019-12-10] MEDS ORDERED: fentaNYL citrate 0.05 MG/ML VIAL ONE (12:44)
[2019-12-10] MEDS ORDERED: NEOSTIGMINE 1:1000 10 MG/10 ML VIAL ONE (12:44)
[2019-12-10] MEDS ORDERED: MEPERIDINE 25 MG/ML SYR ONE (12:44)
[2019-12-10] MEDS ORDERED: ONDANSETRON 4 MG/2 ML VIAL ONE (12:44)
[2019-12-10] MEDS ORDERED: diphenhydrAMINE 50 MG/ML VIAL IVP PRN (13:30)
[2019-12-10] MEDS ORDERED: ONDANSETRON 4 MG/2 ML VIAL IVP PRN (13:30)
[2019-12-10] MEDS ORDERED: MEPERIDINE 25 MG/ML SYR IVP PRN (13:30)
[2019-12-10] MEDS: LIDOCAINE 1% 500 MG/50 ML VIAL ONE ×2 (13:36→14:34)
[2019-12-10] MEDS: BUPIVACAINE-MPF 0.25% 30 ML VIAL INJ ONE ×2 (13:37→14:34)
[2019-12-10] MEDS: LEVOFLOXACIN 500 MG/D5W PREMIX 100 ML IV SCH (14:00)
[2019-12-10] MEDS: HYDROmorphone 1 MG/ML AMP IVP PRN ×4 (14:15→14:45)
[2019-12-10] MEDS ORDERED: HYDROmorphone PFS 2 MG/ML SYR ONE (14:19)
--- NOTE | 2019-12-10 15:00 | NUR ---
PT RETURNED FROM POST OP. REPORT GIVEN AT BEDSIDE. NO SIGNS OF DISTRESS NOTED. PRESCRIPTION AND DOCTOR'S APPOINTMENT REMINDER ARE IN CHART. POST OP VITALS TAKEN. SAFETY MEASURES IN PLACE. WILL CONTINUE TO MONITOR
[2019-12-10 16:00] VITALS: BP 105/62
--- NOTE | 2019-12-10 17:15 | NUR ---
HOURLY ROUNDING. PT RESTING IN BED. ABLE TO MAKE NEEDS KNOWN. RESPIRATIONS EVEN AND UNLABORED WITH NO SOB OR RESPIRATORY DISTRESS. SKIN WARM AND DRY TO TOUCH. SAFETY MEASURES IN PLACE. WILL CONTINUE TO MONITOR
--- NOTE | 2019-12-10 19:30 | NUR ---
ENDORSED AT BEDSIDE TO NIGHTSHIFT NURSE FOR CONTINUITY OF CARE. PT IS STABLE
[2019-12-11 00:59] VITALS: BP 102/58
[2019-12-11] MEDS: NACL 0.9% 1,000 ML IV SCH ×2 (06:04→06:05)
[2019-12-11 06:22] LABS: ALBUMIN 3.6 g/dL (3.4-5.0); ANION GAP 15.4 (8-16); BASOPHILS % (AUTO) 0.2 % (0.0-2.0); CARBON DIOXIDE 24.5 mmol/L (21-32); CREATININE 1.1 mg/dL (0.6-1.3); EOSINOPHILS % (AUTO) 0.1 % (0.0-4.0); HEMATOCRIT 37.6 % (36-52); HEMOGLOBIN 12.4 g/dL (12.0-18.0); LYMPHOCYTES # (AUTO) 1.7 K/uL (2.0-11.5); LYMPHOCYTES % (AUTO) 24.8 % (20.5-51.1); MEAN CORPUSCULAR HEMOGLOBIN 34 pg (27-31); MEAN CORPUSCULAR HGB CONC 33 g/dL (33-37); MEAN CORPUSCULAR VOLUME 103.6 fL (80-94); MONOCYTES # (AUTO) 0.4 K/uL (0.8-1.0); MONOCYTES % (AUTO) 5.4 % (1.7-9.3); NEUTROPHILS # (AUTO) 4.7 K/uL (1.8-7.7); NEUTROPHILS % (AUTO) 69.5 % (42.2-75.2); PLATELET COUNT (AUTO) 169 K/uL (140-450); POTASSIUM 3.9 mmol/L (3.5-5.1); RED BLOOD CELL COUNT(AUTO) 3.63 MIL/uL (4.20-6.10); RED CELL DISTRIBUTION WIDTH 13.8 % (11.6-13.7); TOTAL BILIRUBIN 12.8 mg/dL (0.0-1.0); WHITE BLOOD COUNT (AUTO) 6.7 K/uL (4.8-10.8)
--- NOTE | 2019-12-11 07:30 | NUR ---
RECEIVED REPORT FROM SYSTEMS PLANNER NURSE AT BEDSIDE FOR CONTINUITY OF CARE. PATIENT AMBULATING TO BATHROOM ON STEADY GAIT, AOX4, NO SOB OR DISTRESS NOTED ON RA. IV SITE PATENT, ASYMPTOMATIC, INTACT, INFUSING IVF WELL. PT S/P SEBASTIEN ROSENBAUM WITH DR. HAYDEN, INCISION SITE DRY AND INTACT, PT LAST MEDICATED FOR PAIN 701. VERBALIZED PLAN OF CARE, HE VERBALIZED UNDERSTANDING. CALL LIGHT WITHIN REACH, WILL CONTINUE TO MONITOR PATIENT.
[2019-12-11 08:00] VITALS: BP 117/75
--- NOTE | 2019-12-11 09:54 | NUR ---
Dr. Poole in to see the patient. Waiting for orders. Patient resting comfortably in bed, no s/s or distress noted. All needs met at this time. Informed patient about discharge process, he verbalized understanding.
[2019-12-11] MEDS ORDERED: HYDR-5122 PO (10:03)
--- NOTE | 2019-12-11 10:38 | NUR ---
PAGED DR. HAYDEN TO INFORM HIM OF PATIENT'S DISCHARGE ORDER BY DR. GUADALUPE. DR. HAYDEN CALLED BACK, AWARE AND OK TO DISCHARGE PATIENT. PATIENT NOW AWARE OF IMPENDING DISCHARGE.
--- NOTE | 2019-12-11 11:15 | NUR ---
DISCHARGE INSTRUCTIONS AND EDUCATION GIVEN TO PATIENT. HE VERBALIZED UNDERSTANDING ABOUT FOLLOW UP WITH DR. HAYDEN AND DR. WHITE, TAKING PRESCRIBED MEDICATIONS NEEDED, AWARE OF SIDE EFFECTS. AWARE OF CARE OF SURGERY SITE AND KEEPING IT CLEAN AND DRY. IV REMOVED, IV CATHETER INTACT, MINIMAL BLEEDING NOTED. ID BANDS CUT. PATIENT NOW WILL CHANGE INTO HIS OWN CLOTHING AND CALL HIS FAMILY SO THAT THEY CAN TAKE HIM HOME. PATIENT WILL CALL WHEN FAMILY ARRIVE. CALL LIGHT WITHIN REACH.
--- NOTE | 2019-12-11 11:45 | NUR ---
PATIENT WHEELED OFF FLOOR TO BE DISCHARGED HOME. MOTHER AND FATHER HERE TO PICK PATIENT UP. PATIENT TOOK ALL HIS BELONGINGS WITH HIM. PATIENT IN STABLE CONDITION.
== END 2019-12-11 11:45 | disposition home or self-care (01) | DRG 263 ==
LOC: MED 06:00 → MMU 09:26
PROVIDERS: ADMIT Internal Medicine; ATTEND Internal Medicine
PROC: BF101ZZ Fluoroscopy of Bile Ducts using Low Osmolar Contrast (ICD-10-PCS; 2019-12-09)
PROC: 0FC98ZZ Extirpation of Matter from Common Bile Duct, Via Natural or Artificial Opening Endoscopic (ICD-10-PCS; principal; 2019-12-09 11:30)
PROC: 0FT44ZZ Resection of Gallbladder, Percutaneous Endoscopic Approach (ICD-10-PCS; 2019-12-10)
DX: K80.60 Calculus of gallbladder and bile duct with cholecystitis, unspecified, without obstruction (principal); R94.5 Abnormal results of liver function studies; B19.10 Unspecified viral hepatitis B without hepatic coma; R17 Unspecified jaundice; Z88.0 Allergy status to penicillin; Z79.899 Other long term (current) drug therapy
CPT/HCPCS: 36415; 71045; 74170; 74330; 76705; 80053; 80305; 82374; 83690; 85025; 85610; 86704; 86706; 86708; 86709; 86803; 87081; 87340; 88304; 96360; 99285; C1769; C1773; J0330; J1170; J1885; J1956; J2001; J2175; J2270; J2405; J2704; J2710; J2765; J3010; J3490; J7030; Q0092; Q9967

== ENCOUNTER 2021-11-09 23:24 | Emergency (ER) | payer OTHER ==
[~2021-11-09] VITALS: Ht 170.2 cm; Wt 56.7 kg
[~2021-11-09 23:24] MED LIST changes: +HYDR-5122 PO
[2021-11-09 23:28] VITALS: BP 117/68
[2021-11-09] MEDS ORDERED: ACETAMINOPHEN EXTRA STRENGTH 500 MG TAB ONE (23:33)
[2021-11-09] MEDS ORDERED: ACETAMINOPHEN EXTRA STRENGTH 500 MG TAB PO ONE (23:35)
[2021-11-09] MEDS ORDERED: KETOROLAC 30 MG/ML VIAL IVP ONE (23:40)
[2021-11-09] MEDS ORDERED: NACL 0.9% 1,000 ML IV ONE (23:40)
[2021-11-09 23:58] LABS: BASOPHILS % (AUTO) 0.3 % (0.0-2.0); EOSINOPHILS % (AUTO) 0.6 % (0.0-4.0); HEMATOCRIT 42.1 % (36-52); HEMOGLOBIN 14.1 g/dL (12.0-18.0); LYMPHOCYTES # (AUTO) 1.5 K/uL (2.0-11.5); LYMPHOCYTES % (AUTO) 34.4 % (20.5-51.1); MEAN CORPUSCULAR HEMOGLOBIN 30 pg (27-31); MEAN CORPUSCULAR HGB CONC 34 g/dL (33-37); MEAN CORPUSCULAR VOLUME 88.6 fL (80-94); MONOCYTES # (AUTO) 0.2 K/uL (0.8-1.0); MONOCYTES % (AUTO) 4.2 % (1.7-9.3); NEUTROPHILS # (AUTO) 2.7 K/uL (1.8-7.7); NEUTROPHILS % (AUTO) 60.5 % (42.2-75.2); PLATELET COUNT (AUTO) 159 K/uL (140-450); RED BLOOD CELL COUNT(AUTO) 4.75 MIL/uL (4.20-6.10); RED CELL DISTRIBUTION WIDTH 14.5 % (11.6-13.7); WHITE BLOOD COUNT (AUTO) 4.4 K/uL (4.8-10.8)
--- NOTE | 2021-11-10 00:32 | NUR ---
pt to bed #8
[2021-11-10 00:33] LABS: ALBUMIN 3.9 g/dL (3.4-5.0); ANION GAP 14.3 (8-16); CARBON DIOXIDE 23.9 mmol/L (21-32); POTASSIUM 4.2 mmol/L (3.5-5.1); TOTAL BILIRUBIN 1.4 mg/dL (0.0-1.0)
[2021-11-10 00:47] LABS: CREATININE 1.3 mg/dL (0.6-1.3)
[2021-11-10] MEDS ORDERED: KETOROLAC 30 MG/ML VIAL ONE (00:47)
--- NOTE | 2021-11-10 01:00 | NUR ---
36 Y/O M BIB SELF FOR FEVER SINCE 8 PM. PT STATED HE COULDNT MOVE ARMS. PT STATES HE THINKS ITS ANXIETY. PT DENIES N/V/D/C/ CHEST PAIN. PT DENIES PMH. NKA PT IS AMBULATORY, A/O X4. SKIN IS PINK/WARM/DRY; LUNGS CLEAR BL; HR EVEN AND REGULAR; PT DENIES ANY FEVER, CP, SOB, OR COUGH AT THIS TIME; PATIENT STATES PAIN OF 2/10 AT THIS TIME; PATIENT POSITIONED FOR COMFORT; HOB ELEVATED; BEDRAILS UP X2; BED DOWN. ER MD MADE AWARE OF PT STATUS.
[2021-11-10] MEDS ORDERED: ACET-9882 PO (01:24)
[2021-11-10 01:27] VITALS: BP 110/60
--- NOTE | 2021-11-10 01:27 | NUR ---
Tereza paniagua in ED - 11/10/21 at 0153 by ANN MARIE Patient discharged with v/s stable. Written and verbal after care instructions given and explained. Patient verbalized understanding. Ambulatory with steady gait. All questions addressed prior to discharge. Advised to follow up with PMD.
--- NOTE | 2021-11-10 01:27 | NUR ---
Patient discharged with v/s stable. Written and verbal after care instructions given and explained. Patient alert, oriented and verbalized understanding of instructions. Ambulatory with steady gait. All questions addressed prior to discharge. ID band removed. Patient advised to follow up with PMD. Rx of TYLENOL given.Opportunity to ask questions provided and answered.
--- NOTE | 2021-11-10 02:06 | NUR ---
The patient's care was reviewed and supervised by Franchesca Mendoza RN, RN.
== END 2021-11-10 01:27 | disposition home or self-care (01) ==
LOC: MED 23:24
DX: B34.9 Viral infection, unspecified (principal); Z88.0 Allergy status to penicillin
CPT/HCPCS: 36415; 80053; 83605; 85025; 87040; 96374; 99283; J1885; J7030